=== PATIENT | male | born 1980 | race Caucasian/White ===

== ENCOUNTER 2023-08-24 15:09 | Emergency (ER) | payer OTHER, SELFPAY ==
[2023-08-24 15:11] VITALS: BP 146/91
[2023-08-24] MEDS: ADACEL 0.5 ML IM (17:06)
--- NOTE | 2023-08-24 17:30 | ED.GENMED ---
History of Present Illness
General
Chief Complaint: Skin Surface Trauma
Source: patient
Exam Limitations: none
Time Seen by Provider: 08/24/23 16:35
Nursing documentation reviewed up to this point in time: agreed with
Travel History
Have you had any contact with someone who has COVID-19?: No
Do you have any symptoms of coronavirus? Fever > 100 degrees, chills, cough, shortness of breath, sore throat, loss of taste or smell, muscle aches, or headache?: No
History of Present Illness
History of Present Illness:
43 y/o R hand dominant M here with left middle finger dorsal laceration by chain saw he was using at home
no deficits of sensation and motor logan the can tell
Able to flex and extend the finger, no active bleeding
tetanus known
no diabetes.
Past History
Past History
ED Past Medical History: None
Review of Systems
Review of Systems
Allergies reviewed?: Yes
All Other Systems: Not applicable
Phy Exam
Physical Exam
Physical Exam:
GENERAL: Alert , in no apparent distress, comfortable at rest
HEAD: NCAT
CV: Cap refill intact
NEUROLOGICAL: Alert and oriented, no focal neuro deficits, , 5/5 strength, sensation intact, ambulation slight limp right leg
SKIN: Warm and dry,
Patient has a linear laceration 3-1/2 cm to the dorsal aspect of his left middle finger over the DIP up to the proximal middle phalanx with visualized tendon without obvious laceration, the fingers able to be fully extended, there is no flexion
deficit, there is no sensory deficit
MUSCULOSKELETAL: Able to fully range the finger without difficulty, sensation intact, laceration to the middle finger
PSYCH: Normal and appropriate interaction.
Course
Orders/Labs/Results
Orders:
Orders
08/24/23 16:56
Tetanus/Diphth/Acelpertussis [Adacel] 0.5 ml IM .ONCE ONE
Finger(s)/Thumb 2 View Lt [CR Finger(s)/thumb Min 2 Vw Lt] Urgent
Comment:
Reason For Exam: 3rd fniger laceration
Vital Signs
Initial and Last Documented VS:
Initial Vital Signs
Temp Pulse Resp BP Pulse Ox
98.4 F 93 20 146/91 99
08/24/23 15:11 08/24/23 15:11 08/24/23 15:11 08/24/23 15:11 08/24/23 15:11
Last Documented Vital Signs
Temp Pulse Resp BP Pulse Ox
98.4 F 71 18 138/90 97
08/24/23 15:11 08/24/23 19:00 08/24/23 19:00 08/24/23 19:00 08/24/23 19:00
Procedures
Laceration Closure
Left Middle Dorsal Third Finger(s):
Status of Wound: clean
Size of Wound in cm: 3.5
Description of Wound Edges: sharp and flap-well vascularized
Preparation: cleaned with saline
Anesthesia: 1% Lidocaine
Revision/Debridement: routine- no revision
Wound exploration: explored to base- no FB and no tendon involvement
Type of Closure: single layer closure
Skin Closure Material: 5-0 nylon
Number of sutures: 6
MDM/Problems Addressed
Differential Diagnosis Includes:
Laceration, tendon injury
MDM/Problems Addressed:
43-year-old [id number] male here with left middle finger laceration from a chainsaw today. Patient is bleeding was controlled, linear 3-1/2 cm laceration to the left dorsal middle finger including the DIP down through the middle phalanx,
there is visualized tendon but no obvious tendon laceration and given the fact that the patient can fully extend the finger I do not believe that he has a extensor tendon injury. He eats normal sensation. The x-ray was independently reviewed by me
and surprisingly had no signs of fracture. I discussed the case with Dr. Valencia from [facility] who recommended anesthetizing the wound, skin closure and splint and follow-up in his office.
*Critical Care Note
Total Time (30-74mins, 75-104mins- exclusive of procedures): Not Applicable
ED Attending Note
-
Portions of this chart may have been created with voice recognition software.� Occasional wrong word or��sound alike� substitutions may have occurred due to the inherent limitations of voice recognition software.
Discharge Plan
Departure
Patient Disposition: Home (Routine Discharge)
Date of Disposition: 08/24/23
Time of Disposition: 18:43
Patient with high blood pressure during this ER visit?: Yes
Condition: Fair
Covid-19: Not Applicable
Discharge Problem:
Laceration of finger
Instructions: Laceration Repair With Stitches (DC)
Referrals:
Zach Valencia MD [Active] - Follow up in 2-3 days
NONE,* [Family Provider] -
Activity Restrictions/Additional Instructions:
You have a laceration of your finger which was deep but does not appear to have penetrated the bone. You should make sure you follow-up with a hand doctor. This will ensure that you have an evaluation of the tendon and hand function
KEEP THE WOUND CLEAN AND DRY FOR 24 HOURS
AFTER THAT YOU CAN GET IT WET IN THE BATH/SHOWER ONCE A DAY AND MAKE SURE IT IS CLEAN AND THERE IS NO DRIED BLOOD ON THE STITCHES
APPLY NEOSPORIN AND A BANDAID
THE STITCHES NEED TO BE REMOVED IN ABOUT 10 days
USE THE SPLINT FO RA FEW DAYS TO KEEP IT STRAIGHT
THE LAST DAY BEFORE STITCHES OUT, NO OINTMENT, LEAVE OPEN TO AIR
WATCH FOR SIGNS OF INFECTION AND RETURN NEEDED FOR PAIN, SWELLING, REDNESS, DRAINAGE, BLEEDING.
MOTRIN NEEDED FOR PAIN.
Interventions
Interventions:
*Risk Screen - Suicide Last Done: 08/24/23 18:21
*General Assessment Last Done: 08/24/23 18:21
*Neglect/Abuse Screening Last Done: 08/24/23 18:21
ED- Fall Risk Assessment Last Done: 08/24/23 18:21
*ED COVID-19 Vaccine History Last Done: 08/24/23 18:21
*Nursing Disposition Last Done: 08/24/23 19:14
ED-Skin Assessment Last Done: 08/24/23 18:21
Discharge Date and Time
Discharge Date/Time: 08/24/23 19:14
Print Language: SYRIAC
[2023-08-24 19:00] VITALS: BP 138/90
== END 2023-08-24 19:14 | disposition home or self-care (01) ==
LOC: EMR 15:09
PROVIDERS: EMERGENCY PHYSICIAN Emergency Medicine
DX: S61.213A Laceration without foreign body of left middle finger without damage to nail, initial encounter (principal); W29.3XXA Contact with powered garden and outdoor hand tools and machinery, initial encounter; Z23 Encounter for immunization
CPT/HCPCS: 99283; 12002; 90471; 73140; 90715